=== PATIENT | female | born 1990 | race African-American/Black ===

== ENCOUNTER 2023-08-20 13:52 | Inpatient (IN) ==
[2023-08-20] MEDS ORDERED: Lidocaine 1% VIAL 10 MG/ML 30 ML VIAL INJ PRN (14:15)
[2023-08-20] MEDS ORDERED: ceFOXitin 2 GM IVPREMIX 2 GM/50 ML BAG IVPB ONE (14:22)
[2023-08-20] MEDS: Lactated Ringers 1000 ml BAG 1,000 ML IV ONE (14:40)
[2023-08-20] MEDS ORDERED: Morphine PF AMP (0.5MG/ML) 5 MG/10 ML AMP ONE (15:04)
[2023-08-20] MEDS ORDERED: fentaNYL 100 mcg/2 ml 50 MCG/ML VIAL ONE (15:04)
[2023-08-20 15:09] LABS: ABS Lymphocytes 1.1 10^3/uL (1.0-4.8); ABS Monocytes 0.9 10^3/uL (0.0-0.9); ABS Neutrophils 12.5 10^3/uL (1.5-7.6); ABS Nucleated RBC 0.01 10^3/ul; Hematocrit 33.9 % (35-45); Lymphocyte % 7.3 %; Mean Corpuscular Hemoglobin 23.1 pg (27-33); Mean Corpuscular Hgb Conc 32.4 g/dL (31-36); Mean Corpuscular Volume 71.4 fL (80-97); Mean Platelet Volume 8.3 fL (7.5-11.2); Nucleated Red Blood Cells % 0.1 %/100WBC (0.0-0.8); Platelet Count 209 10^3/uL (150-450); Red Blood Count 4.76 10^6/uL (3.63-4.92); Red Cell Distribution Width 15.3 % (12-17); White Blood Count 14.5 10^3/uL (3.8-11.8)
[2023-08-20] MEDS ORDERED: Phenylephrine 40 mcg/mL 10mL (400mcg) SYRINGE ONE (15:10)
[2023-08-20] MEDS ORDERED: Ondansetron 4 mg VIAL 2 MG/ML 2 ml VIAL ONE (15:10)
[2023-08-20] MEDS ORDERED: Dexamethasone IV 4 MG/ML VIAL 1 ml VIAL ONE (15:10)
[2023-08-20] MEDS: Sodium Citrate/Citric Acid LIQ 15 ML UDC ONE (15:17)
[2023-08-20] MEDS: Lactated Ringers 1000 ml BAG 1,000 ML IV SCH (15:18)
[2023-08-20 15:26] LABS: Urine Creatinine Concentration 26.85 mg/dL (20.00-320.00); Urine TP Concentration < 5 mg/dL; Urine TP Creat Ratio 0.18 mg/mg
[2023-08-20 15:36] LABS: Urine Benzodiazepine Screen None Detected (None Detect); Urine Cannabinoids Screen None Detected (None Detect); Urine Opiates Screen None Detected (None Detect)
[2023-08-20 15:43] LABS: Albumin 3.7 g/dL (3.2-5.2); Albumin/Globulin Ratio 1.4 (1-3); Calcium 9.5 mg/dL (8.6-10.3); Creatinine, Serum 0.7 mg/dL (0.51-0.95); Globulin 2.7 g/dL (2-4); Potassium 4.1 mmol/L (3.5-5.0); Total Bilirubin 0.3 mg/dL (0.2-1.0); Total Protein 6.4 g/dL (6.4-8.9)
[2023-08-20] MEDS ORDERED: Oxytocin 10 UNITS/ML 1 ML VIAL ONE ×2 (15:55→16:16)
[2023-08-20] MEDS ORDERED: Acetaminophen IV 1 GM/100ML 1,000 MG/100 ML BAG IV ONE (15:55)
[2023-08-20] MEDS ORDERED: Propofol 10 MG/ML 20 ML BTL ONE (16:10)
[2023-08-20] MEDS ORDERED: Naloxone 0.4 mg VIAL 0.4 mg/ml 1 ml VIAL IV PUSH PRN (16:28)
[2023-08-20] MEDS ORDERED: Metoclopramide 5 MG/ML VIAL (10 mg) IV PRN (16:28)
[2023-08-20] MEDS ORDERED: Acetaminophen IV 1 GM/100ML 1,000 MG/100 ML BAG IV PRN (16:28)
[2023-08-20] MEDS ORDERED: Ondansetron 4 mg VIAL 2 MG/ML 2 ml VIAL IV PRN (16:28)
[2023-08-20] MEDS ORDERED: Glycerin ADULT 2.4 gm SUPP PR PRN (17:05)
[2023-08-20] MEDS ORDERED: Witch Hazel PAD JAR TOPICAL PRN (17:05)
[2023-08-20] MEDS ORDERED: Dibucaine 1% OINT 28.35 GM TUBE PR PRN (17:05)
[2023-08-20] MEDS ORDERED: Lactated Ringers 1000 ml BAG 1,000 ML IV SCH (18:00)
[2023-08-20 18:03] LABS: Urine Appearance Clear; Urine Bilirubin Negative (Negative); Urine Blood Negative (Negative); Urine Color Colorless; Urine Glucose Negative (Negative); Urine Ketones Negative (Negative); Urine Nitrite Negative (Negative); Urine Protein Negative (Negative); Urine Specific Gravity 1.003 (1.002-1.030); Urine Urobilinogen Negative (Negative)
[2023-08-20] MEDS: Oxytocin in LR 20,000 MILLI.UNIT/1,000 ML BAG IV SCH (18:21)
[2023-08-20] MEDS: Betamethasone 6 mg/ml 5 ml VIAL IM ONE (19:18)
[2023-08-21 07:59] LABS: ABS Lymphocytes 1.4 10^3/uL (1.0-4.8); ABS Monocytes 1.4 10^3/uL (0.0-0.9); ABS Neutrophils 11.4 10^3/uL (1.5-7.6); ABS Nucleated RBC 0.02 10^3/ul; Eosinophil % 0.1 %; Hematocrit 34.2 % (35-45); Hemoglobin 10.6 g/dL (11.5-14.3); Mean Corpuscular Hemoglobin 23.3 pg (27-33); Mean Corpuscular Hgb Conc 31.1 g/dL (31-36); Mean Corpuscular Volume 75.2 fL (80-97); Mean Platelet Volume 8.1 fL (7.5-11.2); Nucleated Red Blood Cells % 0.1 %/100WBC (0.0-0.8); Platelet Count 152 10^3/uL (150-450); Red Blood Count 4.55 10^6/uL (3.63-4.92); Red Cell Distribution Width 15.5 % (12-17); White Blood Count 14.2 10^3/uL (3.8-11.8)
[2023-08-21] MEDS: Buffered Lidocaine 1% SYRIN 1 ml INTRADERM ONE (16:32)
[2023-08-21] MEDS: Betamethasone 6 mg/ml 5 ml VIAL ONE (16:33)
[2023-08-23 08:49] VITALS: BP 127/76
[2023-08-23] MEDS: Varicella Virus Vaccine Live 0.5 ML VIAL SUBCUT ONE (14:54)
== END 2023-08-23 17:30 | disposition home or self-care (01) | DRG 540 ==
LOC: MCHOBOUT 13:52 → MCHOB 14:40
PROVIDERS: ADMIT Obstetrics & Gynecology; ATTEND Obstetrics & Gynecology